=== PATIENT | male | born 1925 | race Caucasian/White ===

== ENCOUNTER 2016-08-15 13:53 | Outpatient (CLI) | payer MEDICARE, OTHER | END 2016-08-15 13:54 | disposition home or self-care (01) | DX: E11.65 Type 2 diabetes mellitus with hyperglycemia (principal); Z79.899 Other long term (current) drug therapy ==

== ENCOUNTER 2016-09-04 16:25 | Outpatient (CLI) | payer MEDICARE, OTHER | END 2016-09-04 16:26 | disposition home or self-care (01) | DX: I48.91 Unspecified atrial fibrillation (principal) ==

== ENCOUNTER 2016-09-13 15:30 | Outpatient (CLI) | payer MEDICARE, OTHER | END 2016-09-13 15:31 | DX: R00.0 Tachycardia, unspecified (principal) ==

== ENCOUNTER 2016-11-20 08:00 | Outpatient (CLI) | payer MEDICARE, OTHER | END 2016-11-20 23:59 | disposition home or self-care (01) | DX: E11.9 Type 2 diabetes mellitus without complications (principal); Z79.899 Other long term (current) drug therapy ==

== ENCOUNTER 2017-01-01 08:19 | Emergency (ER) | payer MEDICARE, OTHER ==
[2017-01-01] MEDS ORDERED: ACETAMINOPHEN 325 MG TABLET PO STA (08:31)
--- NOTE | 2017-01-01 08:34 | ED Physician Documentation ---
History of Present Illness - Stated complaint Stated Complaint: GLF - Chief complaint Chief Complaint: General - Additonal information Additional information: hx from pt 89 male tripped and fell getting newspaper and hit back of head on cement no LOC + 5/10 HERNANDEZ no neck pain no numbness or weakness no chest pain no abd pain no NVD no ext injury including hips otherwise well recently no fever cough NVD etc no blood thinners Review of Systems Constitutional: denies: Fever, Chills Eyes: denies: Loss of vision Ears: denies: Drainage/discharge Nose: denies: Epistaxis Cardiac: denies: Chest pain / pressure Respiratory: denies: Dyspnea, Cough GI: denies: Abdominal Pain, Nausea, Vomiting Skin: denies: Laceration (s) Musculoskeletal: denies: Neck pain Neurologic: reports: Headache, Head injury. denies: Focal weakness, Numbness Endocrine: denies: Easy bruising / bleeding Immunocompromised: denies: Immunocompromised PD PAST MEDICAL HISTORY - Past Medical History Past Medical History: Yes - Past Surgical History Past Surgical History: No - Allergies Allergies/Adverse Reactions: Allergies Allergy/AdvReac Type Severity Reaction Status Date / Time No Known Drug Allergies Allergy Verified 01/01/17 08:30 - Social History Does the pt smoke?: No Smoking Status: Never smoker Does the pt drink ETOH?: No Does the pt have substance abuse?: No - Immunizations Immunizations are current?: Yes PD ED PE NORMAL - Vitals Vital signs reviewed: Yes - General General: Alert and oriented X 3 - HEENT HEENT: PERRL. No: Atraumatic (TTP and mild swelling to occiput) - Neck Neck: No bony TTP (but due to age and mechanism merits imaging) - Cardiac Cardiac: RRR - Respiratory Respiratory: No respiratory distress, Clear bilaterally - Abdomen Abdomen: Soft, Non tender - Derm Derm: Normal color - Extremities Extremities: No deformity, No tenderness to palpate, Normal ROM s pain - Neuro Neuro: Alert and oriented X 3, No motor deficit, No sensory deficit Results - Vitals Vitals: Vital Signs - 24 hr 01/01/17 08:24 Temperature 36.4 C L Heart Rate 95 Respiratory 12 Rate Blood Pressure 122/67 O2 Saturation 99 Oxygen O2 Source Room air - Rads (name of study) CTH Radiology: See rad report (neg) CT CS Radiology: See rad report (no fx or dislocation, degen chages) Departure - Departure Disposition: 01 Home, Self Care Clinical Impression: Head injury Qualifiers: Encounter type: initial encounter Qualified Code(s): S09.90XA - Unspecified injury of head, initial encounter Condition: Good Instructions: ED Head Injury Closed Sleep Mon Follow-Up: Petr Curry MD [Primary Care Provider] - Comments: The CT scans are fine - no fractures and no brain bleeding So it is safe to go home Please read over the head injury information I provided and if possible please stay with another adult who can watch you. Ice and tylenol as needed for the pain. Return if worse
[2017-01-01] MEDS ORDERED: ACETAMINOPHEN 325 MG TABLET PO ONE (08:35)
--- NOTE | 2017-01-01 09:17 | CT Preliminary Report ---
Exam: CT Head W/O IMPRESSION: No CT evidence for acute intracranial abnormality. [facility] SITE ID: [id number]
--- NOTE | 2017-01-01 09:20 | CT Report ---
EXAM: CT HEAD EXAM DATE: 01/01/2017 09:01 AM. CLINICAL HISTORY: Pain post injury after a fall, reportedly fell and hit head on cement. Now has head ache. COMPARISON: None. TECHNIQUE: Multiaxial CT images were obtained from the foramen magnum to the vertex. IV contrast: Non e. Reformats: Coronal. In accordance with CT protocol optimization, one or more of the following dose reduction techniques w ere utilized for this exam: automated exposure control, adjustment of mA and/or KV based on patient s ize, or use of iterative reconstructive technique. FINDINGS: No displaced skull fracture. No acute intracranial hemorrhage. Prominent diffuse cerebral volume loss/atrophy. Prominent atherosclerotic calcification of the right intradural vertebral artery and both cavernous c arotid arteries. No evidence for acute infarct, hydrocephalus, mass effect or midline shift. No acute mastoid or paranasal sinus fluid. IMPRESSION: No CT evidence for acute intracranial abnormality. [facility] Referring Provider Line: [phone] SITE ID: [id number]
--- NOTE | 2017-01-01 09:28 | CT Preliminary Report ---
Exam: CT Cervical Spine W/O IMPRESSION: 1. No acute fracture or dislocation. 2. 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 [facility] SITE ID: [id number]
--- NOTE | 2017-01-01 09:30 | CT Report ---
EXAM: CT CERVICAL SPINE WITHOUT CONTRAST DATE: 01/01/2017 09:02 AM HISTORY: Pain post injury after a fall. COMPARISONS: None. TECHNIQUE: Thin-section axial images were acquired of the cervical spine without contrast. Post-proce ssing: Coronal and sagittal reformats. Other: None. In accordance with CT protocol optimization, one or more of the following dose reduction techniques w ere utilized for this exam: automated exposure control, adjustment of mA and/or KV based on patient s ize, or use of iterative reconstructive technique. FINDINGS: Prominent atherosclerotic calcifications in the regions of the cervical carotid bifurcations, left wo rse than right. No significant cervical spinal column malalignment. Vertebral body heights are maintained. No acute f racture or dislocation. Diffuse degenerative marginal spurring, especially bulky anteriorly at C2-C3 through C6-C7. Relativel y shallow posterior degenerative disk osteophyte complexes are present, C2-C3 through C6-C7. There ma y also be a minimal discontinuous component of posterior longitudinal ligament ossification near the disk space levels. Bony central canal stenosis is minimal. Bony foraminal stenosis from uncinate process hypertrophic de generative spurring is especially severe on the right at C6-C7. Relatively mild chronic diffuse facet arthropathy, most prominent on the right at C2-C3. No focal prevertebral soft tissue thickening or edema. The microbiology supervisor view shows a cardiac pacer/defibrillator. IMPRESSION: 1. No acute fracture or dislocation. 2. 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 [facility] Referring Provider Line: [phone] SITE ID: [id number]
[2017-01-01 10:02] VITALS: BP 120/70
== END 2017-01-01 10:00 | disposition home or self-care (01) ==
LOC: ED 08:19
DX: S09.90XA Unspecified injury of head, initial encounter (principal); W01.198A Fall on same level from slipping, tripping and stumbling with subsequent striking against other object, initial encounter
CPT/HCPCS: 70450; 72125; 99283; A9270